=== PATIENT | male | born 2000 | race Caucasian/White ===

== ENCOUNTER 2021-11-25 11:47 | Outpatient (CLI) | payer BC, SELFPAY ==
--- NOTE | ~2021-11-25 | XR_ITS ---
XR lumbar spine 2-3V DATE: 11/25/2021 12:23 INDICATION: Fall 2 weeks ago. Bruising/hematoma across lower back TECHNIQUE: AP, lateral, coned lateral lumbosacral views COMPARISON: None FINDINGS: There is levoscoliosis of the thoracolumbar spine which may be partly due to position. No fracture or bone destruction. The included lower thoracic and lumbar pedicles are intact. Lumbar a nd lumbosacral interspaces are well preserved. The sacroiliac joints are normal. IMPRESSION: Scoliosis; otherwise negative Reviewed, dictated and finalized at location A. [employer]
--- NOTE | ~2021-11-25 | XR_ITS ---
XR sacrum coccyx min 2V DATE: 11/25/2021 12:23 INDICATION: Fall 2 weeks ago. Bruising/hematoma across lower back. Sacrococcygeal pain. TECHNIQUE: AP, lateral and bilateral oblique views COMPARISON: None FINDINGS: No sacral or coccygeal fracture or bone destruction is evident. The pubic symphysis and sac roiliac joints are intact. No erosive change or ankylosis. IMPRESSION: Negative Reviewed, dictated and finalized at location A. [facility] IMPRESSION: Negative
== END 2021-11-25 11:48 | disposition home or self-care (01) ==
LOC: ANHIMG 11:53
PROVIDERS: PCP Pediatrics; Visit Provider Pediatrics
DX: M54.50 Low back pain, unspecified (principal); M41.9 Scoliosis, unspecified
CPT/HCPCS: 72100; 72220